=== PATIENT | female | born 1935 | race Native Hawaiian/Other Pacific Islander ===

== ENCOUNTER 2016-08-13 08:39 | Inpatient (IN) | payer OTHER ==
[~2016-08-13 08:39] MED LIST: ALPR1TAB61 PO; AMLO10TA PO; CIPRO500 MG PO; CRESTOR5 MG PO; DIVA250T PO; MACROBID100 MG OR; METFORMIN ER1000 MG PO; OLANZAPINE5 M1 OR; RAMI10CA PO; STOOL SOFTNR1 TAB OR; [UNRECOGNIZED DRUG - CODE] OR; [UNRECOGNIZED DRUG - CODE] PO; [UNRECOGNIZED DRUG - OTHER] OR
== END 2016-09-13 08:00 | disposition still patient (30) ==
LOC: PAVA 08:39
PROVIDERS: ADMIT Internal Medicine
DX: Z51.89 Encounter for other specified aftercare (principal)

== ENCOUNTER 2016-09-13 09:00 | Inpatient (IN) | payer OTHER | END 2016-10-14 08:38 | disposition still patient (30) | LOC: PAVA 09:00 | PROVIDERS: ADMIT Internal Medicine | DX: Z51.89 Encounter for other specified aftercare (principal) ==

== ENCOUNTER 2016-10-14 09:15 | Inpatient (IN) | payer OTHER | END 2016-11-11 08:18 | disposition still patient (30) | LOC: PAVA 09:15 | PROVIDERS: ADMIT Internal Medicine | DX: Z51.89 Encounter for other specified aftercare (principal) ==

== ENCOUNTER 2016-11-11 08:48 | Inpatient (IN) | payer OTHER | END 2016-12-12 08:02 | disposition still patient (30) | LOC: PAVA 08:48 | PROVIDERS: ADMIT Internal Medicine | DX: Z51.89 Encounter for other specified aftercare (principal) ==

== ENCOUNTER 2016-12-12 09:53 | Inpatient (IN) | payer OTHER | END 2017-01-11 08:31 | disposition still patient (30) | LOC: PAVA 09:53 | PROVIDERS: ADMIT Internal Medicine | DX: Z51.89 Encounter for other specified aftercare (principal) ==

== ENCOUNTER 2017-01-04 17:02 | Outpatient (CLI) | payer OTHER, BC | END 2017-01-04 19:36 | disposition home or self-care (01) | LOC: LAB 17:02 | DX: Z16.24 Resistance to multiple antibiotics (principal) | CPT/HCPCS: 87081 ==

== ENCOUNTER 2017-01-11 08:52 | Inpatient (IN) | payer OTHER | END 2017-02-11 08:11 | disposition still patient (30) | LOC: PAVA 08:52 | PROVIDERS: ADMIT Internal Medicine | DX: Z51.89 Encounter for other specified aftercare (principal) ==

== ENCOUNTER 2017-02-11 08:28 | Inpatient (IN) | payer OTHER | END 2017-03-13 14:57 | disposition still patient (30) | LOC: PAVA 08:28 | PROVIDERS: ADMIT Internal Medicine | DX: Z51.89 Encounter for other specified aftercare (principal) ==

== ENCOUNTER 2017-03-13 15:12 | Inpatient (IN) | payer OTHER | END 2017-04-13 08:36 | disposition still patient (30) | LOC: PAVA 15:12 | PROVIDERS: ADMIT Internal Medicine | DX: Z51.89 Encounter for other specified aftercare (principal) ==

== ENCOUNTER 2017-04-13 09:24 | Inpatient (IN) | payer OTHER | END 2017-05-14 08:12 | disposition still patient (30) | LOC: PAVA 09:24 | PROVIDERS: ADMIT Internal Medicine | DX: Z51.89 Encounter for other specified aftercare (principal) ==

== ENCOUNTER 2017-05-14 08:32 | Inpatient (IN) | payer OTHER | END 2017-06-13 09:09 | disposition still patient (30) | LOC: PAVA 08:32 | PROVIDERS: ADMIT Internal Medicine | DX: Z51.89 Encounter for other specified aftercare (principal) ==

== ENCOUNTER 2017-06-13 09:27 | Inpatient (IN) | payer OTHER | END 2017-07-14 10:25 | disposition still patient (30) | LOC: PAVA 09:27 | PROVIDERS: ADMIT Internal Medicine ==

== ENCOUNTER 2017-07-14 12:26 | Inpatient (IN) | payer OTHER | END 2017-08-13 08:13 | disposition still patient (30) | LOC: PAVA 12:26 | PROVIDERS: ADMIT Internal Medicine ==

== ENCOUNTER 2017-08-13 09:04 | Inpatient (IN) | payer OTHER | END 2017-09-13 08:31 | disposition still patient (30) | LOC: PAVA 09:04 | PROVIDERS: ADMIT Internal Medicine ==

== ENCOUNTER 2017-09-13 09:13 | Inpatient (IN) | payer OTHER | END 2017-10-14 08:33 | disposition still patient (30) | LOC: PAVA 09:13 | PROVIDERS: ADMIT Internal Medicine ==

== ENCOUNTER 2017-10-14 09:40 | Inpatient (IN) | payer OTHER | END 2017-11-11 08:08 | disposition still patient (30) | LOC: PAVA 09:40 | PROVIDERS: ADMIT Internal Medicine ==

== ENCOUNTER 2017-11-11 08:58 | Inpatient (IN) | payer OTHER | END 2017-12-12 08:00 | disposition still patient (30) | LOC: PAVA 08:58 | PROVIDERS: ADMIT Internal Medicine ==

== ENCOUNTER 2017-12-12 09:00 | Inpatient (IN) | payer OTHER | END 2018-01-11 08:12 | disposition still patient (30) | LOC: PAVA 09:00 | PROVIDERS: ADMIT Internal Medicine ==

== ENCOUNTER 2018-01-11 08:50 | Inpatient (IN) | payer OTHER | END 2018-02-11 08:21 | disposition still patient (30) | LOC: PAVA 08:50 | PROVIDERS: ADMIT Internal Medicine ==

== ENCOUNTER 2018-02-11 08:43 | Inpatient (IN) | payer OTHER | END 2018-03-13 14:15 | disposition still patient (30) | LOC: PAVA 08:43 | PROVIDERS: ADMIT Internal Medicine ==

== ENCOUNTER 2018-02-25 16:11 | Outpatient (CLI) | payer OTHER | END 2018-02-25 23:45 | disposition home or self-care (01) | LOC: LAB 16:11 | DX: H10.023 Other mucopurulent conjunctivitis, bilateral (principal) | CPT/HCPCS: 87070; 87205 ==

== ENCOUNTER 2018-03-13 14:34 | Inpatient (IN) | payer OTHER | END 2018-04-13 08:00 | disposition still patient (30) | LOC: PAVA 14:34 | PROVIDERS: ADMIT Internal Medicine | DX: Z51.89 Encounter for other specified aftercare (principal) ==

== ENCOUNTER 2018-04-13 09:00 | Inpatient (IN) | payer OTHER | END 2018-05-14 09:57 | disposition still patient (30) | LOC: PAVA 09:00 | PROVIDERS: ADMIT Internal Medicine ==

== ENCOUNTER 2018-05-14 10:11 | Inpatient (IN) | payer OTHER | END 2018-06-13 08:40 | disposition still patient (30) | LOC: PAVA 10:11 | PROVIDERS: ADMIT Internal Medicine ==

== ENCOUNTER 2018-06-13 09:00 | Inpatient (IN) | payer OTHER | END 2018-07-14 08:11 | disposition still patient (30) | LOC: PAVA 09:00 | PROVIDERS: ADMIT Internal Medicine ==

== ENCOUNTER 2018-07-14 08:28 | Inpatient (IN) | payer OTHER | END 2018-08-13 08:05 | disposition still patient (30) | LOC: PAVA 08:28 | PROVIDERS: ADMIT Internal Medicine ==

== ENCOUNTER 2018-07-20 10:14 | Outpatient (CLI) | payer OTHER, BC ==
[2018-07-20 10:41] LABS: PLATELET COUNT 229 K/uL (152-353)
[2018-07-20 10:42] LABS: POTASSIUM 4.1 mmol/L (3.6-5.2)
== END 2018-07-20 20:30 | disposition home or self-care (01) ==
LOC: LAB 10:14
PROVIDERS: Internal Medicine
DX: I10 Essential (primary) hypertension (principal); Z79.899 Other long term (current) drug therapy
CPT/HCPCS: 80053; 84443; 85027

== ENCOUNTER 2018-08-13 08:20 | Inpatient (IN) | payer OTHER | END 2018-09-13 10:22 | disposition still patient (30) | LOC: PAVA 08:20 | PROVIDERS: ADMIT Internal Medicine ==

== ENCOUNTER 2018-09-13 10:57 | Inpatient (IN) | payer OTHER | END 2018-09-28 20:30 | disposition E | LOC: PAVA 10:57 | PROVIDERS: ADMIT Internal Medicine ==